=== PATIENT | male | born 1950 | race African-American/Black ===

== ENCOUNTER 2023-08-18 14:32 | Emergency (ER) | payer MEDICARE, MEDICAID ==
[~2023-08-18] VITALS: Ht 188 cm; Wt 120.0 kg
[~2023-08-18 14:32] MED LIST: no home medications
[2023-08-18 14:35] VITALS: O2SAT 98
[2023-08-18] MEDS ORDERED: ONDANSETRON HCL 4MG/2ML INJ IV STA (15:20)
[2023-08-18] MEDS ORDERED: MORPHINE SULFATE 4 MG/ML INJ (FOR IV/IM USE) IV STA (15:20)
[2023-08-18 18:38] LABS: BASOPHILS % 0.3 % (0.0-2.0); EOSINOPHILS % 0.5 % (0.0-5.0); HEMATOCRIT. 33.3 % (42.0-52.0); HEMOGLOBIN. 10.8 g/dL (14.0-18.0); LYMPHOCYTES % 7.1 % (20.0-50.0); MEAN CORPUSCULAR HEMOGLOBIN 28.3 pg (28.0-32.0); MEAN CORPUSCULAR HGB CONC 32.5 g/dL (31.0-37.0); MEAN PLATELET VOLUME 7.2 fl (7.4-10.4); MONOCYTES % 5.5 % (2.0-8.0); NEUTROPHILS % 86.6 % (40.0-76.0); PLATELET 419 x1000/uL (130-400); RED BLOOD CELL COUNT 3.82 mill/uL (4.7-6.1); RED CELL DISTRIBUTION WIDTH 15.9 % (11.6-14.6); WHITE BLOOD COUNT 10.7 x1000/uL (4.5-11.0)
[2023-08-18 18:44] LABS: PROTHROMBIN TIME 10.7 sec (9.6-11.0)
[2023-08-18 19:07] LABS: ALANINE AMINOTRANSFERASE 14 IU/L (10-49); ALBUMIN 4.2 g/dL (3.2-4.8); ASPARTATE AMINOTRANSFERASE 18 IU/L (<34); BILIRUBIN TOTAL 1.1 mg/dL (0.1-1.0); CARBON DIOXIDE 28 mEq/L (21-32); CHLORIDE 104 mEq/L (98-107); GLUCOSE 93 mg/dL (70-105); POTASSIUM 3.8 mEq/L (3.5-5.1); PROTEIN TOTAL 7.3 g/dL (6.0-8.3); SODIUM 139 mEq/L (136-145); UREA NITROGEN BLOOD 8 mg/dL (9-23)
[2023-08-18 19:20] LABS: CLARITY URINE CLEAR (CLEAR); COLOR URINE YELLOW (YELLOW); GLUCOSE URINE NEGATIVE (NEGATIVE); KETONES URINE NEGATIVE (NEGATIVE); LEUKOCYTE ESTERASE URINE NEGATIVE (NEGATIVE); NITRITE URINE NEGATIVE (NEGATIVE); OCCULT BLOOD URINE NEGATIVE (NEGATIVE); PROTEIN URINE NEGATIVE (NEGATIVE); SPECIFIC GRAVITY URINE 1.007 (1.005-1.030)
[2023-08-18] MEDS: MORPHINE SULFATE 4 MG/ML INJ (FOR IV/IM USE) IV NR (19:27)
[2023-08-18] MEDS: SODIUM CHLORIDE 0.9% 1,000 ML IV ONE (19:27)
[2023-08-18] MEDS: ONDANSETRON HCL 4MG/2ML INJ IV NR (19:27)
[2023-08-19] MEDS: ONDANSETRON HCL 4MG/2ML INJ IV ONE (01:20)
[2023-08-19] MEDS: MORPHINE SULFATE 4 MG/ML INJ (FOR IV/IM USE) IV ONE (01:20)
[2023-08-19] MEDS: ACETAMINOPHEN 325MG TABLET PO ONE (01:20)
[2023-08-19 02:10] VITALS: BP 145/81; PULSE 78; RESP 18; TEMP 98
== END 2023-08-19 02:19 | disposition short-term general hospital (02) ==
LOC: ER 14:32
DX: S79.09 Other physeal fracture of upper end of femur (principal); S80.01XA Contusion of right knee, initial encounter; S09.90XA Unspecified injury of head, initial encounter; I10 Essential (primary) hypertension; W18.39XA Other fall on same level, initial encounter; Y93.89 Activity, other specified; Y92.89 Other specified places as the place of occurrence of the external cause; Y99.8 Other external cause status
CPT/HCPCS: 99291; 96361; 96374; 70450; 96375; 80053; 81003; 85025; 85610; 86850; 86900; 86901; 36415; 73502; 73552; 71045; 73120; 96376; J2405 ×2; J2270 ×2; J7030